=== PATIENT | female | born 1995 | race African-American/Black ===

== ENCOUNTER 2024-06-16 08:30 | Emergency (ER) | payer SELFPAY ==
[~2024-06-16] VITALS: Ht 170.2 cm; Wt 95.0 kg
[2024-06-16 08:39] VITALS: BP 145/64; PULSE 84; RESP 18; TEMP 98.4; O2SAT 99
[2024-06-16] MEDS: LIDOCAINE HCL/PF 1% 10 MG/ML 5ML VIAL INFIL ONE (09:22)
[2024-06-16] MEDS: TETANUS, DIPHTHERIA, PERTUSSIS VAC/PF 0.5ML (>10YR OLD) IM ONE (09:39)
== END 2024-06-16 10:34 | disposition home or self-care (01) ==
LOC: ER 08:30
DX: S61.215A Laceration without foreign body of left ring finger without damage to nail, initial encounter (principal); W26.0XXA Contact with knife, initial encounter; Y93.89 Activity, other specified; Y92.89 Other specified places as the place of occurrence of the external cause; Y99.8 Other external cause status
CPT/HCPCS: 12002; 99282; J3490; Z7610 ×2